=== PATIENT | female | born 1975 ===

== ENCOUNTER 2017-01-01 16:11 | Emergency (ER) | payer MEDICAID ==
[2017-01-01 16:41] VITALS: BP 140/94
--- NOTE | 2017-01-01 17:05 | UC ---
Complaint Female HPI - HPI Summary HPI Summary: The patient comes in today for: 1. Urinary frequency and right flank pain: Onset: 2 days ago. Palliative/provocative: Bath helped. Quality: Ache Region: Right flank with radiation to the front. Severity: 01/11 Time: Constant. Associated symptoms: Renal stones: She has passed 5 on her own and one needed medical attention-- she had a high oxalate stone at that time. Her last stone was 2011. She states that she may have a stone. Fevers: None. Rash: None. * - History Of Current Complaint Chief Complaint: UCGU Stated Complaint: URINARY Time Seen by Provider: 01/01/17 16:46 Hx Obtained From: Patient Hx Last Menstrual Period: 12/25/16 - Allergies/Home Medications Allergies/Adverse Reactions: Allergies Allergy/AdvReac Type Severity Reaction Status Date / Time Amoxicillin AdvReac GI Upset Verified 01/01/17 16:31 Erythromycin AdvReac GI Upset Verified 01/01/17 16:31 Home Medications: Home Medications Calcium Carbonate [Calci-Chew] 1,250 mg PO DAILY 01/01/17 [History Confirmed ] Cyanocobalamin TAB* [Vitamin B12 TAB*] 500 mcg PO DAILY 01/01/17 [History Confirmed 01/01/17] Cyclobenzaprine TAB* [Flexeril 10 MG TAB*] 10 mg PO BEDTIME 01/01/17 [History Confirmed 01/01/17] Diphenhydramine-Acetaminophen [Tylenol Pm Extra Strength 500-25 mg] 1 tab PO DAILY 01/01/17 [History Confirmed 01/01/17] Ferrous Sulfate [Iron Slow Release] 143 mg PO DAILY 01/01/17 [History Confirmed 01/01/17] Multivitamins/Minerals TAB* [Thera M Plus TAB*] 1 tab PO DAILY 01/01/17 [ History Confirmed 01/01/17] PMH/Surg Hx/FS Hx/Imm Hx Previously Healthy: Yes - Fibromyalgia, but DM, HTN, CAD, high cholestrerol. Other History Of: Negative For: Hepatitis B, Hepatitis C, Anticoagulant Therapy - Surgical History Surgical History: Yes Surgery Procedure, Year, and Place: gastric bypass 2005, bypass revision 2015, lithotripsy x2 w/ stents - Family History Known Family History: Positive: Cardiac Disease, Hypertension - Social History Occupation: Unemployed Alcohol Use: None Substance Use Type: None Smoking Status (MU): Never Smoked Tobacco Review of Systems Constitutional: Negative Skin: Negative Eyes: Negative ENT: Negative Genitourinary: Hematuria - Yesterday., Frequency All Other Systems Reviewed And Are Negative: Yes Physical Exam Triage Information Reviewed: Yes Appearance: Well-Appearing, No Pain Distress, Well-Nourished Vital Signs: Initial Vital Signs Temp 99.4 F 01/01/17 16:33 Pulse 95 01/01/17 16:33 Resp 18 01/01/17 16:33 BP 140/94 01/01/17 16:33 Pulse Ox 100 01/01/17 16:33 Vital Signs Reviewed: Yes Eyes: Positive: Conjunctiva Clear. Negative: Discharge ENT: Positive: Hearing grossly normal. Negative: Pharyngeal erythema, Nasal congestion, TM bulging, TM dull, TM red, Tonsillar swelling, Tonsillar exudate Dental: Negative: Gross Decay/Caries @, Dental Fracture @ Neck: Positive: Supple, Nontender, No Lymphadenopathy. Negative: Nuchal Rigidity Respiratory: Positive: Chest non-tender, Lungs clear, No respiratory distress, No accessory muscle use. Negative: Crackles, Rhonchi Cardiovascular: Positive: RRR, No Murmur Abdomen Description: Positive: Nontender, No Organomegaly, Soft. Negative: CVA Tenderness (R), CVA Tenderness (L), Distended, Guarding Musculoskeletal: Positive: Strength Intact, ROM Intact, No Edema Neurological: Positive: Alert, Muscle Tone Normal Psychological: Positive: Age Appropriate Behavior, Consolable Skin: Negative: rashes, breakdown Diagnostics - Laboratory Diagnostic Studies Completed/Ordered: Urine screen: Specific gravity: 1.005. WBC: (-). Nitrite: (-). Blood: 2+. Protein: (-). Glucose: (-) Complaint Female Dx - Course Course Of Treatment: patient was told of the negative UA for UTI and the negative CT for kidney stone. She was talked to about there being no diagnosis for her right flank pain radiating to the front. She denies any rashes in that area. We also talked to about pain control. - Differential Dx/Diagnosis Provider Diagnoses: Right flank pain. Discharge - Discharge Plan Condition: Stable Disposition: HOME Patient Education Materials: Flank Pain (ED) Referrals: Anam Warner [Primary Care Provider] - As Soon As Possible (Please call your primary care provider as soon as you can for a follow-up evaluation to see how well you are doing. If you get worse, please be seen sooner.)
--- NOTE | 2017-01-01 18:05 | RAD ---
INDICATION: Right flank pain COMPARISON: None TECHNIQUE: Noncontrast axial source images were acquired from the level hemidiaphragms to the symphysis pubis as part of CT imaging for renal stone. Lung bases: The lung bases are clear. Liver: The liver is normal in size. Noncontrast imaging shows no evidence of a hepatic mass or ductal dilatation. Gallbladder: Numerous calcified gallstones. Spleen: The spleen is normal in size. The noncontrast CT appearance is normal. Pancreas: Noncontrast imaging shows no pancreatic mass or ductal dilitation. Adrenal glands: No masses are identified. Kidneys/Bladder: There is no evidence of nephrolithiasis or CT evidence of hydronephrosis. Noncontrast imaging shows no evidence of a renal mass. The bladder is unremarkable.. Adenopathy: There is no evidence of intraperitoneal or retroperitoneal adenopathy. Evaluation is limited without oral contrast. Fluid collections: There are no free or localized fluid collections. Vessels: The aorta and iliac vessels are normal in caliber. There are no significant atherosclerotic changes. The IVC appears normal Pelvic organs: The uterus and adnexa appear normal GI tract: Evaluation of the bowel is limited without oral contrast. The stomach, and small bowel appear grossly normal. There is a periumbilical hernia containing a segment of transverse colon. There is no obstruction angulation. Soft tissues: No soft tissue abnormalities of the extraperitoneal abdomen or pelvis are identified. Osseous structures: There are no acute osseous findings. IMPRESSION: 1. No CT evidence of urolithiasis. 2. Cholelithiasis. 3. Moderate-sized ventral hernia without obstruction.
== END 2017-01-01 18:26 | disposition home or self-care (01) ==
LOC: UCCORT 16:11
DX: R10.31 Right lower quadrant pain (principal); M79.7 Fibromyalgia; E11.9 Type 2 diabetes mellitus without complications; I10 Essential (primary) hypertension; I25.10 Atherosclerotic heart disease of native coronary artery without angina pectoris; E78.00 Pure hypercholesterolemia, unspecified; Z98.84 Bariatric surgery status; Z88.1 Allergy status to other antibiotic agents
CPT/HCPCS: 74176; 81003; 99202; G0463